=== PATIENT | female | born 1990 | race Caucasian/White ===

== ENCOUNTER 2016-12-24 21:00 | Emergency (ER) | payer OTHER ==
[2016-12-24 21:12] VITALS: BP 139/86; PULSE 92; TEMP 99.8; BMI 23.8
--- NOTE | 2016-12-24 21:54 | PDOC ---
History of Present Illness - General Chief Complaint: Injury Stated Complaint: RFA LACERATION, ABRASIONS Time Seen by Provider: 12/24/16 21:05 History Source: Patient Exam Limitations: No Limitations - History of Present Illness Initial Comments: 12/24/16 21:50 This is a 26-year-old female who comes in complaining of right forearm laceration. Patient tripped over a table and fell into a glass door. The door shattered resulting in laceration to her right forearm. Patient's tetanus status is approximately 10 years ago. Patient otherwise is healthy. PAST MEDICAL HISTORY: no significant history PAST SURGICAL HISTORY: no significant history FAMILY HISTORY: no pertinant history SOCIAL HISTORY: Pt lives with family and is employed. MEDICATIONS: reviewed ALLERGIES: As per nursing notes Review of Systems General: No fevers or chills, no weakness, no weight loss HEENT: No change in vision. No sore throat,. No ear pain CardioVascular: No chest pain or shortness of breath Respiratory:No cough, or wheezing. Gastrointestinal: no nausea, vomitting, diarrhea or constipation, No rectal bleeding Genitourinary: No dysuria, hematuria, or frequency Musculoskeletal: Right forearm laceration as per history of present illness Neurologic: No headache, vertigo, dizziness or loss of consciousness Psychiatric: nor depression Skin: No rashes or easy bruising Endocrine: no increased thirst or abnormal weight change Allergic: no skin or latex allergy All other systems reviewed and normal GENERAL: The patient is awake, alert, and fully oriented, in no acute distress. HEAD: Normal with no signs of trauma. EYES: Pupils equal, round and reactive to light, extraocular movements intact, sclera anicteric, conjunctiva clear. EXTREMITIES: Normal range of motion, no edema. Right forearm: There is approximately a 2-1/2 cm laceration on the flexor surface of the right forearm. There are also multiple superficial abrasions to the right forearm from a fall. Neurovascular distal is intact. NEUROLOGICAL: Normal speech, normal gait. PSYCH: Normal mood, normal affect. SKIN: Warm, Dry, normal turgor, no rashes or lesions noted. Procedure note laceration repair Laceration was anesthetized with 1% lidocaine no epinephrine and cleaned with some normal saline. Laceration was explored for foreign body there is no foreign bodies visible or palpable Laceration was closed with a total of 6 sutures of 4-0 Ethilon simple interrupted Bacitracin and sterile dressing was applied patient tolerated well Past History - Past Medical History Allergies/Adverse Reactions: Allergies Allergy/AdvReac Type Severity Reaction Status Date / Time No Known Allergies Allergy Verified 12/24/16 21:03 Home Medications: Ambulatory Orders Norethindrone-E.estradiol-Iron [ 24 Tablet] 1 each PO ASDIR 12/24/16 - Surgical History Appendectomy: Yes - Immunization History Td Vaccination: Yes Immunization Up to Date: Yes - Psycho/Social/Smoking Cessation Hx Anxiety: No Suicidal Ideation: No Smoking Status: Yes Smoking History: Current every day smoker Have you smoked in the past 12 months: Yes Number of Cigarettes Smoked Daily: 3 Information on smoking cessation initiated: Yes 'Breaking Loose' booklet given: 12/24/16 Hx Alcohol Use: No *Physical Exam - Vital Signs Last Vital Signs Temp Pulse Resp BP Pulse Ox 99.8 F H 92 H 18 139/86 98 12/24/16 21:00 12/24/16 21:00 12/24/16 21:00 12/24/16 21:00 12/24/16 21:00 *DC/Admit/Observation/Transfer Diagnosis at time of Disposition: Laceration of right forearm Qualifiers: Encounter type: initial encounter Qualified Code(s): S51.811A - Laceration without foreign body of right forearm, initial encounter - Discharge Dispostion Disposition: HOME Condition at time of disposition: Stable Admit: No - Patient Instructions Printed Discharge Instructions: DI for Laceration Repair -- Simple Additional Instructions: Clean the laceration twice a day with some peroxide and reapply a Band-Aid and bacitracin for the next 3-4 days. Otherwise keep the laceration dry do not get it wet for the next 72 hours. Return in 10 days or see her primary care doctor for suture removal. Return to the emergency department immediately with ANY new, persistent or worsening symptoms. Continue any medications as previously prescribed by your physician. You should follow up with your primary doctor as soon as possible regarding today's emergency department visit. . Please make sure your doctor reviews the results of your emergency evaluation. Thank you for coming to the Emergency Department today for your care. It was a pleasure to see you today. Please note that your evaluation is INCOMPLETE until you follow-up with your doctor.
[2016-12-24] MEDS ORDERED: DIPHTH,PERTUSS(ACELL),TET 0.5 ML DISP.SYRIN IM ONE (21:56)
== END 2016-12-24 22:05 | disposition home or self-care (01) ==
LOC: FER 21:00
PROC: 0HQDXZZ Repair Right Lower Arm Skin, External Approach (ICD-10-PCS; principal; 2016-12-24)
DX: S51.811A Laceration without foreign body of right forearm, initial encounter (principal); F17.210 Nicotine dependence, cigarettes, uncomplicated; W25.XXXA Contact with sharp glass, initial encounter; Y93.89 Activity, other specified; Y92.9 Unspecified place or not applicable
CPT/HCPCS: 90715; 99282-25

== ENCOUNTER 2017-01-05 15:13 | Emergency (ER) | payer OTHER ==
--- NOTE | 2017-01-05 15:15 | PDOC ---
Suture Removal/Wound Check HPI - Onset of Previous Treatment Comment:: 01/05/17 15:35 The patient is a 26 year old female, with no significant past medical history of , who presents to the emergency department for a right forearm suture removal. She received 5 stitches here in the ER 2 weeks ago after tripping and falling, resulting in a forearm laceration after her hand went through a window. She was told to come back in 10 days. No other complaints. Allergies: NKA <Luli Bacon - Last Filed: 01/05/17 15:47> <Tona Webb - Last Filed: 01/06/17 20:39> - History of Present Illness Chief Complaint: Suture/Staple Removal(Here) Stated Complaint: SUTURE REMOVAL RFA Time Seen by Provider: 01/05/17 15:14 Past History <Luli Bacon - Last Filed: 01/05/17 15:47> - Reproductive History LMP: 12/17/11 - Immunization History Immunizations Up to Date: Yes Tetanus Status: Unknown - Social History Smoking History: Yes Smoking Status: Current every day smoker Number of Ciarettes Per Day: 3 Alcohol Use: none Drug Use: none <Tona Webb - Last Filed: 01/06/17 20:39> - Past Medical History Allergies/Adverse Reactions: Allergies No Known Allergies Allergy (Verified 01/05/17 15:14) Home Medications: Ambulatory Orders Norethindrone-E.estradiol-Iron [Junel Fe 24 Tablet] 1 each PO ASDIR 12/24/16 Suture Removal/Wound Check PE - Physical Exam Comments: 01/05/17 15:47 Sutures removed GENERAL: +2.5 cm well healed laceration.The patient is in no acute distress. EXTREMITIES: No surrounding, erythma, no pus , no drainage. SKIN: Warm, Dry, normal turgor, no rashes or lesions noted. <Luli Bacon - Last Filed: 01/05/17 15:47> *Review of Systems - Review of Systems Comments:: 01/05/17 15:36 GENERAL/CONSTITUTIONAL: No: fever, chills, weakness, loss of appetite. SKIN: + 5 sutures on right forearm. No: redness or pus at suture site, lesions, pallor, rash or easy bruising. <Luli Bacon - Last Filed: 01/05/17 15:47> Medical Decision Making - Medical Decision Making A portion of this note was documented by scribe services under my direction. I have reviewed the details of the note, within reason, and agree with the documentation with the following case summary and management plan written by me. Nursing documentation reviewed and incorporated into medical decision making 01/05/17 15:28 Patient is told is status post injury to right forearm, status post 5 sutures No signs of infection Pain controlled pt attempted to remove sutures herself unable to do so Came to the ER 5 sutures removed Pt tolerated this well Discharge to home <Tona Webb - Last Filed: 01/06/17 20:39> *DC/Admit/Observation/Transfer - Attestations Scribe Attestion: 01/05/17 15:47 Documentation prepared by Luli Bacon, acting as medical science liaison for Tona Webb MD. <Luli aBcon - Last Filed: 01/05/17 15:47> - Discharge Dispostion Admit: No <Tona Webb - Last Filed: 01/06/17 20:39> Diagnosis at time of Disposition: Visit for suture removal - Discharge Dispostion Disposition: HOME Condition at time of disposition: Stable - Patient Instructions Printed Discharge Instructions: DI for Suture Removal Additional Instructions: Jane Thanks for coming in to get your sutures removed Monitor for signs of infection If present, please come in to the ER for evaluation Please massage area with vitamin E oil for scar improvement
[2017-01-05 15:19] VITALS: BP 134/83; PULSE 93; TEMP 98.1; BMI 24.7
== END 2017-01-05 15:36 | disposition home or self-care (01) ==
LOC: FER 15:13
DX: Z48.02 Encounter for removal of sutures (principal)
CPT/HCPCS: 99282-25

== ENCOUNTER 2021-09-12 11:27 | Emergency (ER) | payer OTHER ==
[2021-09-12 11:45] VITALS: BP 138/94; PULSE 80; TEMP 98.4; BMI 27.9
[2021-09-12] MEDS ORDERED: LIDOCAINE VISCOUS 2% ORAL/TOP 15 ML UNIT-DOSE CUP MM ONE (12:12)
[2021-09-12] MEDS ORDERED: MAG HYDROX/AL HYDROX/SIMETH 30 ML UNIT-DOSE CUP PO ONE (12:12)
[2021-09-12] MEDS ORDERED: MAG HYDROX/AL HYDROX/SIMETH 30 ML UNIT-DOSE CUP ONE (12:30)
[2021-09-12] MEDS ORDERED: LIDOCAINE VISCOUS 2% ORAL/TOP 15 ML UNIT-DOSE CUP ONE (12:30)
[2021-09-12 13:04] LABS: ALBUMIN 4.5 g/dl (3.4-5.0); ALK PHOS 49 U/L (45-117); ANION GAP 9 MMOL/L (8-16); BILIRUBIN,TOTAL 0.6 mg/dl (0.2-1); CALCIUM 9.7 mg/dl (8.5-10); CHLORIDE 102 mmol/L (98-107); CO2 25 mmol/L (21-32); CREATININE 0.8 mg/dl (0.55-1.3); GLUCOSE,RANDOM 95 mg/dl (74-106); SGOT/AST 14 U/L (15-37); SGPT/ALT 24 U/L (13-61); SODIUM 136 mmol/L (136-145); TOT PROT 7.7 g/dl (6.4-8.2)
[2021-09-12 13:05] LABS: HEMATOCRIT 42.6 % (32.4-45.2); HEMOGLOBIN 14.6 G/dL (10.7-15.3); MCH 28.9 pg (25.7-33.7); MCHC 34.2 g/dl (32.0-36.0); MEAN CELL VOLUME 84.4 fl (80-96); MEAN PLT VOLUME 8.5 fl (7.5-11.1); PLATELET COUNT 227.1 10^3/uL (134-434); RBC 5.05 10^6/uL (3.60-5.2)
[2021-09-12 13:39] LABS: PLATELET ESTIMATE ADEQUATE
[2021-09-12 13:53] LABS: LIPASE 84 U/L (73-393)
[2021-09-12] MEDS ORDERED: AMOX TR/POT CLAV 875MG/125MG TABLETS (FP) PO ONE (15:03)
[2021-09-12] MEDS ORDERED: AMOX TR/POT CLAV 875MG/125MG TABLETS (FP) ONE (15:20)
== END 2021-09-12 15:27 | disposition home or self-care (01) ==
LOC: FER 11:27
DX: K80.20 Calculus of gallbladder without cholecystitis without obstruction (principal); R10.13 Epigastric pain; R10.11 Right upper quadrant pain
CPT/HCPCS: 36415; 76705-TC; 80053; 83690; 84702; 84703; 85025; 99284-25

== ENCOUNTER 2021-10-05 04:27 | Day surgery (SDC) | payer OTHER ==
[2021-09-28 14:45] VITALS: BMI 27.3
[2021-10-05] MEDS ORDERED: BUPIVACAINE HCL/PF 0.5% (5MG/ML) 10 ML VIAL ONE ×2 (11:02→11:10)
[2021-10-05] MEDS ORDERED: GLYCOPYRROLATE 0.2 MG/1 ML VIAL ONE (11:29)
[2021-10-05] MEDS ORDERED: NEOSTIGMINE METHYLSULFATE 0.5 MG/ML - 10 ML MDV ONE (11:29)
[2021-10-05] MEDS ORDERED: ROCURONIUM BROMIDE 50 MG/5 ML SYRINGE ONE (11:29)
[2021-10-05] MEDS ORDERED: FENTANYL CITRATE/PF 50 MCG/ML VIAL ONE ×10 (11:29→14:24)
[2021-10-05] MEDS ORDERED: MIDAZOLAM HCL 2 MG/2 ML SINGLE DOSE VIAL ONE (11:30)
[2021-10-05] MEDS ORDERED: ceFAZolin SODIUM 1 GM VIAL IVPB ONE (12:00)
[2021-10-05] MEDS ORDERED: PROPOFOL 20 ML ONE (13:04)
[2021-10-05] MEDS ORDERED: BUPIVACAINE HCL/PF 0.5% (5 MG/ML) 30 ML VIAL IJ ONE (13:12)
[2021-10-05] MEDS ORDERED: oxyCODONE HCL 5 MG TABLET PO PRN ×2 (13:59)
[2021-10-05] MEDS ORDERED: ONDANSETRON 4 MG/2 ML VIAL IVPUSH PRN (13:59)
[2021-10-05] MEDS ORDERED: LACTATED RINGERS SOLUTION 1,000 ML IV SCH (14:00)
[2021-10-05 16:31] VITALS: BP 137/89; PULSE 81; TEMP 97.7
== END 2021-10-05 16:40 | disposition home or self-care (01) ==
LOC: JASU-SURG 04:27
PROVIDERS: ATTEND Surgery
PROC: 0FT44ZZ Resection of Gallbladder, Percutaneous Endoscopic Approach (ICD-10-PCS; principal; 2021-10-05 11:52)
DX: K80.10 Calculus of gallbladder with chronic cholecystitis without obstruction (principal)
CPT/HCPCS: 81025; 88304-TC; 94760